=== PATIENT | male | born 1950 | race Caucasian/White ===

== ENCOUNTER 2016-08-16 12:12 | Emergency (ER) | payer MEDICARE, BC ==
[2016-08-16 14:24] VITALS: BP 143/65
--- NOTE | 2016-08-16 15:06 | UC ---
Upper Extremity HPI - HPI Summary HPI Summary: 66M presents with right shoulder pain for two weeks. He initially was lifting something from the ground when he felt a pull on his He states that the pain has been getting worst. He admits to pain greatest over his anterior shoulder. He states that his shoulder feels weaker. He has to use his other hand to lift his shoulder above 90 degrees. - History of Current Complaint Chief Complaint: UCUpperExtremity Stated Complaint: SHOULDER PAIN Time Seen by Provider: 08/16/16 14:51 - Allergies/Home Medications Allergies/Adverse Reactions: Allergies Allergy/AdvReac Type Severity Reaction Status Date / Time Penicillins Allergy HIVES, Verified 05/05/12 06:49 ANAPHYLACTIC PMH/Surg Hx/FS Hx/Imm Hx Endocrine History Of: Denies: Diabetes Cardiovascular History Of: Reports: Cardiac Disorders Denies: Hypertension Respiratory History Of: Denies: COPD Neurological History Of: Denies: CVA, Dementia, Seizures - Surgical History Surgical History: Yes Surgery Procedure, Year, and Place: 1970 TONSILLECTOMY, [facility]. 1994 -1998 NASAL POLYPS SURGERIES X 4, [place] [facility] [place]NEE [place], [facility] [place]. [phone] SEVERAL HEMORRHOIDECTOMY, - Family History Known Family History: Positive: Cardiac Disease - Social History Alcohol Use: None Substance Use Type: None Smoking Status (MU): Never Smoked Tobacco - Immunization History Most Recent Tetanus Shot: 2009 Review of Systems Constitutional: Negative Respiratory: Negative Cardiovascular: Negative Motor: Decreased ROM - right shoulder All Other Systems Reviewed And Are Negative: Yes Physical Exam Triage Information Reviewed: Yes Vital Signs: Initial Vital Signs Temp 98.2 F 08/16/16 14:22 Pulse 62 08/16/16 14:22 Resp 16 08/16/16 14:22 BP 143/65 08/16/16 14:22 Pulse Ox 99 08/16/16 14:22 Vital Signs Reviewed: Yes Eyes: Positive: Conjunctiva Clear Respiratory: Positive: Lungs clear, Normal breath sounds Cardiovascular: Positive: RRR Musculoskeletal: Positive: ROM Limited @ - right shoulder with extension and unable to flex above 90 degrees without assistance, Other: - good pulses, capillary refill < 2secs, neg drop arm test and empty can, neg speed sign, neg oquendo Upper Extremity Course/Dx - Course Course Of Treatment: 66M presents with right shoulder injury two weeks ago. occurred while lifting an object. Wayne a pulling sensation in his anterior shoulder. pain has not gotten any better. now is feeling weakness of area. on exam neg drop arm or empty can test, speed test. has weakness with drop arm though but not complete drop so suspect rotator cuff injury. had xray done a couple days ago and showed osteoarthirits. told patient to follow up with ortho and may benefit from PT. patient understands and agrees with plan - Differential Dx/Diagnosis Differential Diagnosis/HQI/PQRI: Fracture (Closed), Strain, Sprain Provider Diagnoses: right shoulder pain Discharge - Discharge Plan Condition: Good Disposition: HOME Patient Education Materials: Rotator Cuff Injury (ED) Referrals: Jabari Catherine MD [Medical Doctor] - No Primary Care Phys,NOPCP [Primary Care Provider] - Additional Instructions: Take Tylenol and ibuprofen as needed every 6-8 hours for pain Ice/heat area do ROM as tolerated of area Follow up with ortho Return to UC if develop any new or worsening symptoms
== END 2016-08-16 15:20 | disposition home or self-care (01) ==
LOC: UCEAST 12:12
DX: M25.511 Pain in right shoulder (principal); Z88.0 Allergy status to penicillin
CPT/HCPCS: 99202; G0463

== ENCOUNTER 2019-05-25 11:27 | Emergency (ER) | payer OTHER, MEDICARE, BC ==
[2019-05-25 11:53] VITALS: BP 142/66
--- NOTE | 2019-05-25 11:56 | UC ---
Epistaxis Nasal HPI - HPI Summary HPI Summary: 69 yo male presents with nosebleeds. He tells me that over the last few weeks he has been having "random" nosebleeds a few times a week. One day last week he had a nosebleed 5 times in one day. Each time they stop within 15minutes with nasal packing -- always from the left nare. He has a hx of sinus surgery, but has not seen ENT for his nosebleeds. He does not take any blood thinning medications. He denies trauma, headache, dizziness. - History of Current Complaint Chief Complaint: UCGeneralIllness Stated Complaint: NOSE BLEED Time Seen by Provider: 05/25/19 11:55 Hx Obtained From: Patient Onset/Duration: Gradual Onset Severity Currently: None Pain Intensity: 0 - Allergies/Home Medications Allergies/Adverse Reactions: Allergies Allergy/AdvReac Type Severity Reaction Status Date / Time MS Penicillins [Penicillins] Allergy HIVES, Verified 05/25/19 11:54 ANAPHYLACTIC Penicillins Allergy anaph Verified 05/25/19 11:54 PMH/Surg Hx/FS Hx/Imm Hx - Additional Past Medical History Additional PMH: Insomnia GI/ History: Gastroesophageal Reflux - Surgical History Surgical History: Yes Surgery Procedure, Year, and Place: RT KNEE REPLACEMENT X2; RT HIP REPLACEMENT; SINUS SURGERY 20 YRS AGO. Patient states had shrapnel injury to torso....Dr Frank looked at chest xrays from 2003 and 2005 and said nothing shows up there as far as shrapnel, ok to scan. - Family History Known Family History: Positive: Cardiac Disease - Social History Lives: With Family Alcohol Use: None Substance Use Type: None Smoking Status (MU): Never Smoked Tobacco - Immunization History Most Recent Tetanus Shot: 2009 Review of Systems All Other Systems Reviewed And Are Negative: No Constitutional: Positive: Negative Skin: Positive: Negative Eyes: Positive: Negative ENT: Positive: Epistaxis Respiratory: Positive: Negative Cardiovascular: Positive: Negative Neurological: Positive: Negative Psychological: Positive: Negative Physical Exam - Summary Physical Exam Summary: GENERAL: NAD. WDWN. No pain distress. SKIN: No rashes, sores, lesions, or open wounds. HEENT: Head: AT/NC Eyes: EOM intact. Conjunctiva clear without inflammation or discharge. Ears: Hearing grossly normal. TMs intact, no bulging, erythema, or edema. Nose: Nasal mucosa pink and moist with dried blood in left nare. NTTP maxillary and frontal sinus. Throat: Posterior oropharynx without exudates, erythema, or tonsillar enlargement. Uvula midline. NECK: Supple. Nontender. No lymphadenopathy. NEURO: Alert. PSYCH: Age appropriate behavior. Triage Information Reviewed: Yes Vital Signs: Initial Vital Signs Temp 97.1 F 05/25/19 11:49 Pulse 83 05/25/19 11:49 Resp 16 05/25/19 11:49 BP 142/66 05/25/19 11:49 Pulse Ox 99 05/25/19 11:49 Vital Signs Reviewed: Yes Epistaxis Nasal Course/Dx - Course Course Of Treatment: Nosebleed today stopped with manual packing in <30minutes. Instilled one spray of afrin to left nare and advised to use this for 2 days. Referral to ENT - Differential Dx/Diagnosis Provider Diagnosis: Epistaxis Discharge ED - Sign-Out/Discharge Documenting (check all that apply): Patient Departure All imaging exams completed and their final reports reviewed: No Studies - Discharge Plan Condition: Stable Disposition: HOME Patient Education Materials: Nosebleed (ED) Referrals: Jeremie Calderon MD [Primary Care Provider] - Chace Villa MD [Medical Doctor] - As Soon As Possible Additional Instructions: If you develop a fever, shortness of breath, chest pain, new or worsening symptoms - please call your PCP or go to the ED immediately. Please call the Ear, Nose, and Throat doctor at the number below to schedule an appointment for your recurring nosebleeds. - Billing Disposition and Condition Condition: STABLE Disposition: Home
[2019-05-25] MEDS ORDERED: Phenylephrine 0.5% NASAL* BTL LEFT NARE ONE (12:19)
== END 2019-05-25 13:00 | disposition home or self-care (01) ==
LOC: UCEAST 11:27
DX: R04.0 Epistaxis (principal); G47.00 Insomnia, unspecified; Z88.0 Allergy status to penicillin
CPT/HCPCS: 99212; A9270-GY; G0463